=== PATIENT | male | born 1990 | race Caucasian/White ===

== ENCOUNTER 2018-06-01 23:07 | Emergency (ER) | payer SELFPAY ==
[2018-06-01] MEDS ORDERED: LIDOCAINE 1% INJ-PF (10 MG/ML) 30 ML SDV INJ ONE (23:25)
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
[2018-06-02 00:04] VITALS: BP 118/71
== END 2018-06-02 00:20 | disposition home or self-care (01) ==
LOC: ER 23:07
DX: S51.012A Laceration without foreign body of left elbow, initial encounter (principal); W26.0XXA Contact with knife, initial encounter; Y92.59 Other trade areas as the place of occurrence of the external cause
CPT/HCPCS: 99283; 12001; J3490